=== PATIENT | female | born 1995 | race Two or more races ===

== ENCOUNTER 2023-04-18 14:44 | Outpatient (CLI) | payer OTHER | END 2023-04-18 16:08 | disposition home or self-care (01) | LOC: PRENATAL 14:44 | PROVIDERS: ATTEND Obstetrics & Gynecology Maternal & Fetal Medicine | DX: O35.9XX0 Maternal care for (suspected) fetal abnormality and damage, unspecified, not applicable or unspecified (principal); O35.3XX0 Maternal care for (suspected) damage to fetus from viral disease in mother, not applicable or unspecified; O44.00 Complete placenta previa NOS or without hemorrhage, unspecified trimester; Z3A.19 19 weeks gestation of pregnancy ==

== ENCOUNTER 2023-07-16 08:42 | Outpatient (CLI) | payer OTHER | END 2023-07-16 08:48 | disposition home or self-care (01) | LOC: PRENATAL 08:42 | PROVIDERS: ATTEND Obstetrics & Gynecology Maternal & Fetal Medicine | DX: O26.849 Uterine size-date discrepancy, unspecified trimester (principal); O36.8199 Decreased fetal movements, unspecified trimester, other fetus; O24.419 Gestational diabetes mellitus in pregnancy, unspecified control; Z3A.32 32 weeks gestation of pregnancy ==

== ENCOUNTER 2023-08-13 13:49 | Outpatient (CLI) | payer OTHER | END 2023-08-13 13:50 | disposition home or self-care (01) | LOC: PRENATAL 13:49 | PROVIDERS: ATTEND Obstetrics & Gynecology Maternal & Fetal Medicine | DX: O26.849 Uterine size-date discrepancy, unspecified trimester (principal); O36.8199 Decreased fetal movements, unspecified trimester, other fetus; O24.419 Gestational diabetes mellitus in pregnancy, unspecified control; Z3A.36 36 weeks gestation of pregnancy ==

== ENCOUNTER 2023-08-23 09:54 | Outpatient (CLI) | payer OTHER | END 2023-08-23 11:40 | disposition home or self-care (01) | LOC: OBS/DEL 09:54 | PROVIDERS: ATTEND Obstetrics & Gynecology | DX: O26.893 Other specified pregnancy related conditions, third trimester (principal); M54.89 Other dorsalgia; Z3A.37 37 weeks gestation of pregnancy ==

== ENCOUNTER 2023-08-28 17:05 | Inpatient (IN) | payer OTHER ==
[~2023-08-28] VITALS: Ht 154.9 cm; Wt 3.2 kg
[2023-08-28 18:47] LABS: HEMATOCRIT 34.7 % (36.0-45.00); HEMOGLOBIN 11.8 g/dL (12.0-15.00); MEAN CELL VOLUME 85.4 fL (80.00-100.00); PH,URINE 5.5 (5.0-8.0); PLATELET COUNT 178 K/uL (150-450); RED BLOOD COUNT 4.06 M/uL (4.00-6.00); RED CELL DISTRIBUTION WIDTH 13.7 % (11.5-14.5); URINE APPEARANCE Clear; URINE BILIRRUBIN Negative (NEGATIVE); URINE BLOOD Trace; URINE COLOR Yellow; URINE GLUCOSE Negative (NEGATIVE); URINE LEUKOCYTE Negative; URINE NITRATE Negative; URINE PROTEIN Trace (NEGATIVE); URINE UROBILINOGEN 0.2 E.U./dl
[2023-08-28 18:51] LABS: URINE EPITHELIAL CELLS 18.6 uL (0.0-38.8); URINE RBC 7.3 uL (0.0-20.8); URINE WBC 7.8 uL (0.0-23.2)
[2023-08-28 19:09] LABS: INR < 0.93; PARTIAL THROMBOPLASTIN TIME 27.7 SECONDS (22.0-34.0); PROTHROMBIN TIME 9.3 SECONDS (9.0-11.5)
[2023-08-28 19:14] LABS: BILIRUBIN TOTAL 0.36 mg/dL (0.3-1.2); CALCIUM 8.9 mg/dL (8.5-10.1); CREATININE SERUM 0.65 mg/dL (0.55-1.02); GFR 111.06; GLOBULINA 3.7 G/DL (2.4-3.5); POTASSIUM 3.92 mEq/L (3.5-5.1); TOTAL PROTEIN 6.7 gm/dL (6.4-8.2)
[2023-08-29 06:25] LABS: ABG PH 7.209 (7.35-7.45); ABG PO2 20.2 mmHg (80-100); ABG pCO2 50.4 mmHg (35-45); BASE EXCESS -8.5 mmol/l; BICARBONATE 19.7 mmol/l (23-25)
[2023-08-29 06:26] LABS: Tco2 21.2 mmol/l; o2 21 %
[2023-08-30 06:57] LABS: HEMATOCRIT 30.4 % (36.0-45.00); HEMOGLOBIN 10.4 g/dL (12.0-15.00); MEAN CELL VOLUME 85.8 fL (80.00-100.00); MEAN CORPUSCULAR HEMOGLOBIN 29.4 pg (27.00-32.0); MEAN CORPUSCULAR HGB CONC 34.2 g/dl (32.0-36.0); PLATELET COUNT 155 K/uL (150-450); RED BLOOD COUNT 3.55 M/uL (4.00-6.00); RED CELL DISTRIBUTION WIDTH 13.8 % (11.5-14.5)
[2023-09-01] MEDS ORDERED: NAPR500T14 PO (11:34)
[2023-09-01] MEDS ORDERED: Tylenol #3 PO (11:34)
== END 2023-09-01 15:26 | disposition home or self-care (01) | DRG 787 ==
LOC: LDR 17:05 → OB/GYN 17:05 → LDR 19:54 → OB/GYN 08-29 03:09 → LDR 08-30 11:13 → OB/GYN 09-01 15:26
PROVIDERS: Student in an Organized Health Care Education/Training Program; ADMIT Obstetrics & Gynecology; ATTEND Obstetrics & Gynecology
PROC: 4A1HXCZ Monitoring of Products of Conception, Cardiac Rate, External Approach (ICD-10-PCS; 2023-08-28)
PROC: 10D00Z1 Extraction of Products of Conception, Low, Open Approach (ICD-10-PCS; principal; 2023-08-29 07:00)
DX: O36.8330 Maternal care for abnormalities of the fetal heart rate or rhythm, third trimester, not applicable or unspecified (principal); O41.03X0 Oligohydramnios, third trimester, not applicable or unspecified; Z3A.38 38 weeks gestation of pregnancy; Z37.0 Single live birth; Z20.822 Contact with and (suspected) exposure to COVID-19